=== PATIENT | male | born 1965 | race American Indian/Alaskan Native ===

== ENCOUNTER 2021-05-08 21:22 | Emergency (ER) | payer MEDICARE ==
[2021-05-08 21:41] VITALS: BP 139/83
--- NOTE | 2021-05-08 22:14 | XRay Report ---
CHEST 2 VIEWS INDICATION: COUGH. COMPARISON: None. FINDINGS: Support devices: None. Heart: Within normal limits. Lungs/Pleura: No acute air space or interstitial disease. No significant pleural effusion. IMPRESSION: No acute findings. Signer Name: Fox Rcihards MD Signed: 05/08/2021 10:10 PM Workstation Name: [id number]
--- NOTE | 2021-05-08 23:30 | Emergency Department Report ---
Minor Respiratory - HPI Chief Complaint: Upper Respiratory Infection Stated Complaint: COUGH Time Seen by Provider: 05/08/21 23:18 Duration: 2 weeks Pain Location: Nose, Chest Severity: mild Minor Respiratory: Yes Rhinorrhea, Yes Able to Tolerate Fluids, Yes Cough, No Sore Throat, No Ear Pain, No Sick Contacts, No Hemoptysis, No Chest Pain, No Shortness of Breath, No Fever Other History: Chief complaint: Cough, sinus issues. HPI: This is a 56-year-old male with history of allergic rhinitis, sinusitis who presents with nasal congestion cough for several weeks. He was evaluated at outside hospital emergency department in [place]. He was prescribed antibiotics steroids nasal spray. He did not feel the medications until he returned from his out-of-town trip. He started taking antibiotics steroids on Monday. He has productive cough with mucus. No tobacco use. He has been vaccinated against COVID-19. His last vaccine dose was in November. ED Review of Systems ROS: Stated complaint: COUGH Other details as noted in HPI Comment: All other systems reviewed and negative Constitutional: denies: chills, fever ENT: denies: throat pain Respiratory: cough. denies: shortness of breath, wheezing Cardiovascular: denies: chest pain Gastrointestinal: denies: abdominal pain, nausea Neurological: denies: headache, weakness ED Past Medical Hx - Past Medical History Previous Medical History?: No - Surgical History Past Surgical History?: No - Social History Smoking Status: Never Smoker Substance Use Type: None - Medications Home Medications: Home Medications Medication Instructions Recorded Confirmed Last Taken Type Hydrocodone/Chlorphen P-Stirex 5 ml PO BID PRN #115 ml 05/08/21 Unknown Rx [Tussionex Pennkinetic Susp] Loratadine 10 mg PO DAILY 30 Days #30 capsule 05/08/21 Unknown Rx Minor Respiratory Exam - Exam General: Vital signs noted. No distress. Alert and acting appropriately. HEENT: Yes Moist Mucous Membranes, No Pharyngeal Erythema, No Pharyngeal Exudates, No Rhinorrhea, No Conjuctival Injection Neck: Yes Supple, No Adenopathy Lungs: Yes Good Air Exchange, No Wheezes, No Ronchi, No Stridor, No Cough, No Labored Respirations, No Retractions, No Use of Accessory Muscles, No Other Abnormal Lung Sounds Heart: Yes Regular, No Murmur Abdomen: Yes Normal Bowel Sounds, No Tenderness, No Peritoneal Signs Skin: No Rash, No Edema Neurologic: Alert and oriented, no deficits. Musculoskeletal: Unremarkable. ED Course Vital Signs 05/08/21 21:34 Temperature 98.3 F Pulse Rate 99 H Respiratory 18 Rate Blood Pressure 139/83 O2 Sat by Pulse 99 Oximetry ED Medical Decision Making - Radiology Data Radiology results: report reviewed Chest radiograph PA lateral: No acute findings according radiology impression - Medical Decision Making Acute bronchitis, upper respiratory infection. Patient does not have symptoms of COVID-19 otherwise. He denies loss of taste or smell, body aches. He has been vaccinated against COVID-19. Recently moved from [place] in March. I suspect exacerbation of allergic rhinitis. I have prescribed Tussionex Claritin. I encouraged him to finish steroids and antibiotics previously prescribed. He is referred to outpatient medicine physician. Critical care attestation.: If time is entered above; I have spent that time in minutes in the direct care of this critically ill patient, excluding procedure time. ED Disposition Clinical Impression: Acute bronchitis, Viral upper respiratory infection, Allergic rhinitis Disposition: HOME / SELF CARE / HOMELESS Is pt being admited?: No Does the pt Need Aspirin: No Condition: Stable Instructions: Acute Bronchitis (ED), Viral Respiratory Infection, [id number] Prescriptions: Loratadine 10 mg PO DAILY 30 Days #30 capsule Hydrocodone/Chlorphen P-Stirex [Tussionex Pennkinetic Susp] 5 ml PO BID PRN #115 ml PRN Reason: Cough Referrals: SAMINA ELI MD [Staff Physician] - 3-5 Days
== END 2021-05-08 23:39 | disposition home or self-care (01) ==
LOC: ED 21:22
DX: J20.9 Acute bronchitis, unspecified (principal); J06.9 Acute upper respiratory infection, unspecified; J30.9 Allergic rhinitis, unspecified
CPT/HCPCS: 71046; 99283